=== PATIENT | male | born 1970 | race African-American/Black ===

== ENCOUNTER 2017-04-10 13:53 | Emergency (ER) | payer MEDICAID | END 2017-04-10 15:05 | disposition left against medical advice (07) | LOC: D.ER 13:53 | DX: R07.9 Chest pain, unspecified (principal) ==

== ENCOUNTER 2017-04-23 01:08 | Inpatient (IN) | payer MEDICAID ==
[2017-04-23 03:05] LABS: BASOPHILS 0.1 % (0-2); EOSINOPHILS 0.1 % (0-7); HEMATOCRIT 45.2 % (42.0-54.0); HEMOGLOBIN 15.6 g/dL (13.5-17.5); IMMATURE GRANULOCYTES 0.4 % (0-5); LYMPHOCYTES 31.5 % (15-50); MCH 31.5 pg (26.0-34.0); MCHC 34.5 g/dL (31.0-37.0); MCV 91.1 fL (80.0-100.0); MEAN PLATELET VOLUME 10.9 fL (7.4-10.4); MONOCYTES 9.1 % (2-11); NEUTROPHILS 58.8 % (40-80); PLATELET COUNT 328 10x3/uL (130-400); RBC 4.96 10x6/uL (4.20-6.10)
[2017-04-23 03:07] LABS: ALBUMIN 4.8 g/dL (3.4-5.0); ALKALINE PHOSPHATASE 88 U/L (46-116); ALT (SGPT) 53 U/L (10-68); CALC OSMOLALITY 280 mosm/kg (275-300); CALCIUM 9.5 mg/dL (8.5-10.1); CARBON DIOXIDE 24.7 mmol/L (21.0-32.0); CHLORIDE - SERUM 102 mmol/L (98-107); CREATININE - SERUM 1.3 mg/dL (0.6-1.3); POTASSIUM - SERUM 3.5 mmol/L (3.5-5.1); SODIUM 141 mmol/L (136-145); UREA NITROGEN 19 mg/dL (7-18); eGFR NON AFRICAN AMERICAN 62 mL/min (90-120)
[2017-04-23 03:08] LABS: GLUCOSE 63 mg/dL (74-106)
[2017-04-23 03:17] LABS: CKMB 25.5 U/L (0.0-3.6); TROPONIN-I < 0.017 ng/mL (0.000-0.060)
[2017-04-23 03:19] LABS: CREATINE KINASE 2210 UL (21-232)
[2017-04-23 06:57] LABS: UDS - AMPHET POSITIVE QUAL (NEGATIVE); UDS - BARB NEGATIVE QUAL (NEGATIVE); UDS - BENZO NEGATIVE QUAL (NEGATIVE); UDS - COCAINE POSITIVE QUAL (NEGATIVE); UDS - OPIATE NEGATIVE QUAL (NEGATIVE); UDS - PCP NEGATIVE QUAL (NEGATIVE); UDS - THC POSITIVE QUAL (NEGATIVE)
[2017-04-23 07:03] LABS: APPEARANCE SLT CLOUDY (CLEAR); BACTERIA FEW /hpf (NONE SEEN); BILIRUBIN NEGATIVE (NEGATIVE); COLOR YELLOW (YELLOW); GLUCOSE NEGATIVE (NEGATIVE); GRANULAR CAST RARE /lpf (NONE SEEN); KETONE MODERATE mg/dL (NEGATIVE); MUCUS <1+ /lpf (NONE SEEN); NITRITE NEGATIVE (NEGATIVE); PROTEIN 1+ mg/dL (NEGATIVE); SPECIFIC GRAVITY 1.015 (1.005-1.020); UROBILINOGEN NORMAL (NORMAL)
[2017-04-23 08:47] LABS: TROPONIN-I < 0.017 ng/mL (0.000-0.060)
[2017-04-23 08:57] LABS: CREATINE KINASE 2096 UL (21-232)
[2017-04-23 08:58] LABS: CKMB 22.9 U/L (0.0-3.6)
--- NOTE | 2017-04-23 10:55 | NUR ---
RECEIVED TO ROOM 2222 FROM ER VIA . ORIENTED TO ROOM AND CALL LIGHT SYSTEM. PUTTING ON GOWN AT THIS TIME.
--- NOTE | 2017-04-23 12:15 | NUR ---
IV FLUIDS INITIATED BUT UNABLE TO SCAN D/T SYSTEM BEING DOWN AT THIS TIME. WILL SCAN WHEN ABLE.
[2017-04-23 12:22] VITALS: BP 137/68
[2017-04-23] MEDS ORDERED: PROZAC20 MG PO (12:48)
[2017-04-23] MEDS ORDERED: SEROQUEL300 MG (12:49)
[2017-04-23] MEDS ORDERED: MOBIC7.5 MG PO (12:49)
--- NOTE | 2017-04-23 14:55 | NUR ---
RESTING WITH EYES CLOSED. RESP EVEN AND UNLABORED. CALL LIGHT IN REACH.
--- NOTE | 2017-04-23 16:20 | NUR ---
NO NEEDS VOICED AT THIS TIME. CALL LIGHT IN REACH.
[2017-04-23 17:13] VITALS: BP 115/67
[2017-04-23 17:52] VITALS: BP 132/78; BMI 23.8
--- NOTE | 2017-04-23 18:31 | NUR ---
C/O PAIN IN LEGS AND HEAD. WILL CALL MD. NO OTHER CHANGES IN INITIAL ASSESSMENT. CALL LIGHT IN REACH. WILL CONTINUE WITH PLAN OF CARE.
--- NOTE | 2017-04-23 18:51 | NUR ---
TYLENOL 325 MG PO PER C/O PAIN IN HIS HEAD AND LEGS. NO OTHER CHANGES IN INITIAL ASSESSMENT. CALL LIGHT IN REACH. WILL CONTINUE WITH PLAN OF CARE.
--- NOTE | 2017-04-23 19:00 | NUR ---
REPORT RECEIVED AND CARE OF PT ASSUMED. IV IN LEFT AC PATENT WITH NS INFUSING AT 150 ML / HR. WILL MONITOR CLOSLEY FOR NEEDS. CALL LIGHT WITHIN REACH.
[2017-04-23 20:00] VITALS: BP 113/69
--- NOTE | 2017-04-23 22:00 | NUR ---
PT SITTING UP IN BED WATCHING TV. NO NEEDS VOICED AT THIS TIME. CALL LIGHT WITHIN REACH.
[2017-04-24] VITALS: BP 116/62
[2017-04-24 04:00] VITALS: BP 110/49
--- NOTE | 2017-04-24 04:44 | NUR ---
PT SLEEPING ON RIGHT SIDE WITH UNLABORED BREATHING.
[2017-04-24 05:21] LABS: BASOPHILS 0.4 % (0-2); EOSINOPHILS 2.6 % (0-7); HEMATOCRIT 38.5 % (42.0-54.0); HEMOGLOBIN 13.3 g/dL (13.5-17.5); IMMATURE GRANULOCYTES 0.3 % (0-5); LYMPHOCYTES 49.1 % (15-50); MCH 31.2 pg (26.0-34.0); MCHC 34.5 g/dL (31.0-37.0); MCV 90.4 fL (80.0-100.0); MEAN PLATELET VOLUME 10.7 fL (7.4-10.4); MONOCYTES 10.7 % (2-11); NEUTROPHILS 36.9 % (40-80); RBC 4.26 10x6/uL (4.20-6.10); RDW 12.9 % (11.5-14.5)
[2017-04-24 05:27] LABS: PLATELET COUNT 261 10x3/uL (130-400); WBC 6.9 10x3/uL (4.8-10.8)
[2017-04-24 06:01] LABS: C-REACTIVE PROTEIN 1.3 mg/dL (0.0-0.9); CALCIUM 8.2 mg/dL (8.5-10.1); CARBON DIOXIDE 24.1 mmol/L (21.0-32.0); CHLORIDE - SERUM 108 mmol/L (98-107); CKMB 13.4 U/L (0.0-3.6); GLUCOSE 81 mg/dL (74-106); POTASSIUM - SERUM 3.6 mmol/L (3.5-5.1); SODIUM 140 mmol/L (136-145); TROPONIN-I < 0.017 ng/mL (0.000-0.060)
[2017-04-24 06:11] LABS: CALC OSMOLALITY 278 mosm/kg (275-300); CREATINE KINASE 1489 UL (21-232); CREATININE - SERUM 0.8 mg/dL (0.6-1.3); UREA NITROGEN 14 mg/dL (7-18); eGFR NON AFRICAN AMERICAN > 90 mL/min (90-120)
--- NOTE | 2017-04-24 07:29 | NUR ---
REPORT RECEIVED FROM [employer] NURSE. CALL LIGHT IN REACH.
[2017-04-24 08:48] VITALS: BP 93/58
--- NOTE | 2017-04-24 08:49 | NUR ---
ASSESSMENT COMPLETED. DENIES NEEDS AT THIS TIME. CALL LIGHT IN REACH. WILL CONTINUE WITH PLAN OF CARE.
--- NOTE | 2017-04-24 10:12 | NUR ---
TYLENOL PO PER C/O SOPHIE NOF 7 TO BILATERAL CALVES. NEW BAG OF SALINE INITIATED. VISITOR AT BEDSIDE. CALL LIGHT IN REACH.
--- NOTE | 2017-04-24 11:35 | NUR ---
PT SITTING UP IN BED AT THIS TIME, FAMILY AT BEDSIDE. NO COMPLAINTS AT THIS TIME, STATES RELIEF WITH TYLENOL. BED IN LOWEST POSITION, SIDE RAILS UP X 2, CALL LIGHT WITHIN REACH.
[2017-04-24 12:26] VITALS: BP 95/64
[2017-04-24 12:44] VITALS: BMI 23.7
--- NOTE | 2017-04-24 13:00 | NUR ---
HAYLEY NEEDS AT THIS TIME. CALL LIGHT IN REACH.
--- NOTE | 2017-04-24 14:27 | NUR ---
IV DC'D WITH TIP INTACT.
--- NOTE | 2017-04-24 15:15 | NUR ---
DC INSTRUCTIONS EXPLAINED TO PATIENT. VERBALIZED UNDERSTANDING. DC'D TO VEHICLE WITH FRIEND. REFUSED WC.
== END 2017-04-24 15:15 | disposition home or self-care (01) | DRG 558 ==
LOC: D.ER 01:08 → D.MS 09:48 → OBSVTIME 09:48 → D.MS 17:47
PROVIDERS: Family Medicine; ADMIT Family Medicine
DX: M62.82 Rhabdomyolysis (principal); E86.0 Dehydration; J45.909 Unspecified asthma, uncomplicated; R07.89 Other chest pain

== ENCOUNTER 2017-06-12 08:39 | Emergency (ER) | payer MEDICAID ==
[~2017-06-12 08:39] MED LIST: MOBIC7.5 MG PO; PROZAC20 MG PO; SEROQUEL300 MG
== END 2017-06-12 10:28 | disposition home or self-care (01) ==
LOC: D.ER 08:39
DX: S30.811A Abrasion of abdominal wall, initial encounter (principal); S00.81XA Abrasion of other part of head, initial encounter; Y04.2XXA Assault by strike against or bumped into by another person, initial encounter; Y93.89 Activity, other specified; Y92.89 Other specified places as the place of occurrence of the external cause; S70.01XA Contusion of right hip, initial encounter; S20.219A Contusion of unspecified front wall of thorax, initial encounter; S80.02XA Contusion of left knee, initial encounter; F17.200 Nicotine dependence, unspecified, uncomplicated

== ENCOUNTER 2018-08-27 21:15 | Emergency (ER) | payer MEDICAID ==
[~2018-08-27] VITALS: Ht 182.9 cm; Wt 77.3 kg
[2018-08-27 21:30] VITALS: BP 92/34; Ht 182.9 cm; Wt 77.3 kg
== END 2018-08-27 23:18 | disposition left against medical advice (07) ==
LOC: D.ER 21:15
DX: R07.9 Chest pain, unspecified (principal); R11.2 Nausea with vomiting, unspecified